=== PATIENT | female | born 1980 | race Hispanic/Latino ===

== ENCOUNTER 2022-06-17 22:46 | Emergency (ER) | payer BC, OTHER ==
[~2022-06-17] VITALS: Ht 160 cm; Wt 99.8 kg
[2022-06-17 23:54] VITALS: BP 130/74
[2022-06-18] MEDS ORDERED: KETOROLAC 60 MG VIAL (30MG/ML) IM ONE
== END 2022-06-18 00:08 | disposition home or self-care (01) ==
LOC: EDH 22:46
DX: K08.89 Other specified disorders of teeth and supporting structures (principal)
CPT/HCPCS: 99283; 96372; J1885

== ENCOUNTER 2023-05-02 17:54 | Emergency (ER) | payer BC, OTHER ==
[~2023-05-02] VITALS: Ht 162.6 cm; Wt 93.0 kg
[2023-05-02 22:51] LABS: RAPID GROUP A STREP negative (NEGATIVE)
[2023-05-02 22:56] LABS: SARS-CoV-2, RNA, NAAT NEGATIVE SARS CoV-2 (NEGATIVE)
[2023-05-02 23:01] LABS: INFLUENZA TYPE A Negative For Type A (NEGATIVE); INFLUENZA TYPE B Negative For Type B (NEGATIVE)
[2023-05-02] MEDS ORDERED: AMOX1TAB16 PO (23:10)
[2023-05-02] MEDS ORDERED: FLUT16H NASAL (23:10)
[2023-05-02 23:25] VITALS: BP 114/68; PULSE 74; RESP 16; O2SAT 99
== END 2023-05-02 23:28 | disposition home or self-care (01) ==
LOC: EDH 17:54
DX: J01.90 Acute sinusitis, unspecified (principal); R50.9 Fever, unspecified; R09.81 Nasal congestion; R05.9 Cough, unspecified; Z20.822 Contact with and (suspected) exposure to COVID-19
CPT/HCPCS: 71045; 87635; 87804; 87880